=== PATIENT | female | born 1990 | race Caucasian/White ===

== ENCOUNTER 2022-03-20 08:00 | Emergency (ER) | payer OTHER, SELFPAY ==
[2022-03-20] MEDS ORDERED: NA CHLORIDE 0.9% 1,000 ML ONE (08:26)
[2022-03-20] MEDS ORDERED: METOCLOPRAMIDE 10 MG/2mL INJ ONE (08:26)
[2022-03-20] MEDS ORDERED: DIPHENHYDRAMINE 50 MG/ML VIAL ONE (08:26)
--- NOTE | 2022-03-20 09:55 | ER ---
Nurse's Notes [facility] Name: Laura Harris Age: 32 yrs Sex: Female : 1990 Arrival Date: 03/20/2022 Time: 08:04 Bed 13 Private MD: Diagnosis: Headache Presentation: 03/20 08:08 Chief complaint: Patient states: Migraine CHIN since Thursday night with nausea and ll1 diarrhea. No fever. Coronavirus screen: Vaccine status: Patient reports being unvaccinated. Client denies travel out of the [place] in the last 14 days. At this time, the client does not indicate any symptoms associated with coronavirus-19. Ebola Screen: Patient denies travel to an Ebola-affected area in the 21 days before illness onset. Initial Sepsis Screen: Does the patient meet any 2 criteria? No. Patient's initial sepsis screen is negative. Does the patient have a suspected source of infection? Yes: Other: migraine CHIN. Risk Assessment: Do you want to hurt yourself or someone else? Patient reports no desire to harm self or others. Onset of symptoms was March 17, 2022. 08:08 Method Of Arrival: Ambulatory ll1 08:08 Acuity: DIANE 3 ll1 Triage Assessment: 08:11 General: Appears uncomfortable, Behavior is cooperative, appropriate for age. Pain: ll1 Complains of pain in head Pain currently is 5 out of 10 on a pain scale. Quality of pain is described as aching. Neuro: Reports headache. GI: Reports diarrhea, nausea. 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 - Social history:: Smoking status: Reported history of juuling and/or vaping. Screenin:11 Abuse screen: Denies threats or abuse. Denies injuries from another. Nutritional jg9 screening: No deficits noted. Tuberculosis screening: No symptoms or risk factors identified. Fall Risk None identified. Assessment: 08:11 Pain: Complains of pain in head-left and right temporal region, forehead Pain currently jg9 is 5 out of 10 on a pain scale. 09:30 Reassessment: Patient reports slight improvement in migraine, she is saying the pain is jg9 coming and going. Vital Signs: 08:08 Weight 63.5 kg; Height 5 ft. 10 in. (177.80 cm); Pain 5/10; ll1 08:11 BP 148 / 107; Pulse 80; Resp 14 S; Temp 98.3(TE); Pulse Ox 99% on R/A; Pain 5/10; jg9 09:00 BP 130 / 94; Pulse 60; Resp 12 S; Pulse Ox 98% on R/A; Pain 5/10; jg9 08:08 Body Mass Index 20.09 (63.50 kg, 177.80 cm) ll1 ED Course: 08:04 Patient arrived in ED. rg4 08:07 Jennifer Ortiz MD is Attending Physician. ma2 08:08 Arm band placed on Patient placed in an exam room, on a stretcher. ll1 08:10 Brianne Boss RN is Primary Nurse. jg9 08:11 Triage completed. ll1 08:11 Rell Forbes PA is PHCP. m 08:12 Patient has correct armband on for positive identification. Bed in low position. Call jg9 light in reach. Side rails up X 1. 08:30 Inserted saline lock: 22 gauge in right antecubital area, using aseptic technique. jg9 09:55 Steve Goodman MD is Referral Physician. [facility] 10:06 No provider procedures requiring assistance completed. jg9 10:06 IV discontinued. jg9 Administered Medications: 08:30 Drug: NS 0.9% 1000 ml Route: IV; Rate: 1 bolus; Site: right antecubital; jg9 09:52 Follow up: IV Status: Completed infusion; IV Intake: 1000ml jg9 08:30 Drug: Reglan (metoCLOPramide) 20 mg Route: IVP; Site: right antecubital; jg9 09:52 Follow up: Response: No adverse reaction; Pain is decreased jg9 08:30 Drug: diphenhydrAMINE 12.5 mg Route: IVP; Site: right antecubital; jg9 09:51 Follow up: Response: No adverse reaction; Pain is decreased jg9 10:00 Drug: Decadron - Dexamethasone 10 mg Route: IVP; Site: right antecubital; jg9 10:05 Follow up: Response: No adverse reaction; Medication administered at discharge. jg9 Intake: 09:52 IV: 1000ml; Total: 1000ml. jg9 Outcome: 09:55 Discharge ordered by . marielena 10:06 Discharged to home ambulatory. jg9 10:06 Condition: stable 10:06 Discharge instructions given to patient, Instructed on discharge instructions, follow up and referral plans. Demonstrated understanding of instructions, follow-up care. 10:06 Patient left the ED. jg9 Signatures: Rell Forbes PA PA jmm Garcia, Rubi rg4 Jennifer Ortiz MD MD ma2 Mackenzie Puga RN RN ll1 Brianne Boss RN RN jg9
--- NOTE | 2022-03-20 09:56 | EDPHYS ---
Physician Documentation [facility] Name: Laura Harris Age: 32 yrs Sex: Female : 1990 Arrival Date: 03/20/2022 Time: 08:04 Bed 13 Private MD: ED Physician Jennifer Ortiz HPI: 03/20 08:15 This 32 yrs old Female presents to ER via Ambulatory with complaints of Migraine. jmm 08:15 The patient complains of pain to the forehead, right side of the back of head, right jmm temporal area and right occipital area. Onset: The symptoms/episode began/occurred gradually, 3 day(s) ago. Associated signs and symptoms: Pertinent positives: nausea. Headache History: The patient has had previous headaches and this one is similar to previous episodes. The symptoms are alleviated by nothing. the symptoms are aggravated by nothing. Is a 32-year-old female with history of migraines and presents emerged part with complaints of ongoing headache beginning this past Thursday. Headache is not relieved with [id number] medications, sumatriptan and propranolol. Patient denies neck stiffness. Patient states having some nausea. Denies fever. Headache was gradual onset.. 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 - Social history:: Smoking status: Reported history of juuling and/or vaping. ROS: 08:15 Constitutional: Negative for fever, chills, and weight loss, Cardiovascular: Negative jmm for chest pain, palpitations, and edema, Respiratory: Negative for shortness of breath, cough, wheezing, and pleuritic chest pain. 08:15 Neuro: Positive for headache. 08:15 All other systems are negative. Exam: 08:15 Constitutional: This is a well developed, well nourished patient who is awake, alert, jmm and in no acute distress. Head/Face: atraumatic. Eyes: EOMI, no conjunctival erythema appreciated ENT: Moist Mucus Membranes Neck: Trachea midline, Supple Chest/axilla: Normal chest wall appearance and motion. Cardiovascular: Regular rate and rhythm. No edema appreciated Respiratory: Normal respirations, no respiratory distress appreciated Abdomen/GI: Non distended, soft Back: Normal ROM Skin: General appearance color normal MS/ Extremity: Moves all extremities, no obvious deformities appreciated, no edema noted to the lower extremities Neuro: Awake and alert Psych: Behavior is normal, Mood is normal, Patient is cooperative and pleasant Vital Signs: 08:08 Weight 63.5 kg; Height 5 ft. 10 in. (177.80 cm); Pain 5/10; ll1 08:11 BP 148 / 107; Pulse 80; Resp 14 S; Temp 98.3(TE); Pulse Ox 99% on R/A; Pain 5/10; jg9 09:00 BP 130 / 94; Pulse 60; Resp 12 S; Pulse Ox 98% on R/A; Pain 5/10; jg9 08:08 Body Mass Index 20.09 (63.50 kg, 177.80 cm) ll1 MDM: 08:15 Patient medically screened. [facility] 09:54 Data reviewed: vital signs, nurses notes. Counseling: I had a detailed discussion with marielena the patient and/or guardian regarding: the historical points, exam findings, and any diagnostic results supporting the discharge/admit diagnosis, the need for outpatient follow up, to return to the emergency department if symptoms worsen or persist or if there are any questions or concerns that arise at home. ED course: Pain is relieved in the ED. I do not currently suspect subarachnoid hemorrhage or meningitis. Patient has had similar episodes previously. Patient advised follow-up neurology and otherwise given strict return precautions. Patient understood agrees plan of care.. Administered Medications: 08:30 Drug: NS 0.9% 1000 ml Route: IV; Rate: 1 bolus; Site: right antecubital; jg9 09:52 Follow up: IV Status: Completed infusion; IV Intake: 1000ml jg9 08:30 Drug: Reglan (metoCLOPramide) 20 mg Route: IVP; Site: right antecubital; jg9 09:52 Follow up: Response: No adverse reaction; Pain is decreased jg9 08:30 Drug: diphenhydrAMINE 12.5 mg Route: IVP; Site: right antecubital; jg9 09:51 Follow up: Response: No adverse reaction; Pain is decreased jg9 10:00 Drug: Decadron - Dexamethasone 10 mg Route: IVP; Site: right antecubital; jg9 10:05 Follow up: Response: No adverse reaction; Medication administered at discharge. jg9 Disposition: 18:11 Co-signature as Attending Physician, Jennifer Ortiz MD. ma2 Disposition Summary: 03/20/22 09:55 Discharge Ordered Location: Home [facility] Condition: Stable [facility] Diagnosis - Headache [facility] Followup: [facility] - With: Steve Goodman MD - When: 2 - 3 days - Reason: Recheck today's complaints, Continuance of care, Re-evaluation by your physician Discharge Instructions: - Discharge Summary Sheet [facility] - Migraine Headache [facility] Forms: - Medication Reconciliation Form [facility] - Thank You Letter [facility] - Antibiotic Education [facility] - Prescription Opioid Use [facility] Signatures: Rell Forbes PA PA jmm Alzahri, Mohammad, MD MD ma2 Mackenzie Puga RN RN ll1 Brianne Boss RN RN jg9
[2022-03-20] MEDS ORDERED: dexAMETHasone 4 MG/ML VIAL ONE ×2 (10:00→10:01)
[2022-03-20 10:16] VITALS: TEMP 98.3
[2022-03-20 10:17] VITALS: BP 130/94; O2SAT 98
== END 2022-03-20 10:06 | disposition home or self-care (01) ==
LOC: ER 08:00
DX: R51.9 Headache, unspecified (principal); Z88.0 Allergy status to penicillin; Z88.1 Allergy status to other antibiotic agents
CPT/HCPCS: 96361; 96374; 96375; 99283; J1100; J1200; J2765; J7030

== ENCOUNTER 2022-07-05 01:51 | Emergency (ER) | payer SELFPAY ==
[2022-07-05] MEDS ORDERED: HYDROCODONE/APAP 5/325 MG TAB ONE (02:23)
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
[2022-07-05 04:46] VITALS: TEMP 98.2; O2SAT 100
[2022-07-05 04:53] VITALS: BP 126/103
--- NOTE | 2022-07-05 21:11 | RAD REPORT ---
EXAM DESCRIPTION: RAD - Hand Left 3 View - 07/05/2022 2:33 am CLINICAL HISTORY: PAIN TECHNIQUE: Frontal, lateral and oblique views of the left hand. COMPARISON: No relevant prior studies available. FINDINGS: Bones/joints: Minimally comminuted obliquely oriented 4th middle phalangeal fracture ext ending from the radial head to the ulnar proximal diaphysis. No dislocation. Soft tissues: 4th finger splint. There is a 1.2 cm thin capsule-like foreign body with metallic com ponent in the webspace between the 1st and 2nd metacarpals. IMPRESSION: 4th middle phalangeal fracture. Electronically signed by: Jeremi Renae MD 07/05/2022 3:25 AM CDT Due to temporary technical issues with the PACS/Fluency reporting system, reports are being signed by the in house radiologists without review as a courtesy to insure prompt reporting. The interpreting radiologist is fully responsible for the content of the report.
--- NOTE | 2022-07-05 21:29 | RAD REPORT ---
EXAM DESCRIPTION: RAD - Knee Right 3 View - 07/05/2022 2:33 am CLINICAL HISTORY: PAIN TECHNIQUE: Three views of the right knee. COMPARISON: No relevant prior studies available. FINDINGS: Bones/joints: Unremarkable. No acute fracture. No dislocation. Soft tissues: Unremarkable. IMPRESSION: No acute injury. Electronically signed by: Jeremi Renae MD 07/05/2022 3:26 AM CDT Due to temporary technical issues with the PACS/Fluency reporting system, reports are being signed by the in house radiologists without review as a courtesy to insure prompt reporting. The interpreting radiologist is fully responsible for the content of the report.
== END 2022-07-05 04:22 | disposition home or self-care (01) ==
LOC: ER 01:51
DX: S62.625A Displaced fracture of middle phalanx of left ring finger, initial encounter for closed fracture (principal); S60.552A Superficial foreign body of left hand, initial encounter; M25.561 Pain in right knee; V03.90XA Pedestrian on foot injured in collision with car, pick-up truck or van, unspecified whether traffic or nontraffic accident, initial encounter; Z88.0 Allergy status to penicillin
CPT/HCPCS: 99284